=== PATIENT | female | born 1995 | race Caucasian/White ===

== ENCOUNTER → 2024-02-04 13:35 | Outpatient (REF) | payer OTHER, SELFPAY ==
[2024-02-04 16:32] LABS: HIV Combo Negative (Negative)
[2024-02-04 17:27] LABS: Hepatitis B Surface Antigen Negative (Negative)
[2024-02-04 17:44] LABS: Hepatitis B Surface Antibody Negative; Hepatitis C Antibody Negative (Negative)
== END ==
LOC: OHS 13:35
PROVIDERS: ATTENDING PHYSICIAN Nurse Practitioner Family
DX: Z57.8 Occupational exposure to other risk factors (principal)
CPT/HCPCS: 36415; 86706; 86803; 87340; 87389

== ENCOUNTER → 2024-03-11 06:33 | Outpatient (REF) | payer BC, SELFPAY ==
[2024-03-11 06:58] LABS: % Basophils 0.9 % (0-2); % Eosinophils 2.4 % (0-6); % Immature Granulocytes 0.5 % (0-0.5); % Monocytes 7.5 % (1.7-9.3); % Neutrophils 44.7 % (42.2-75.2); Absolute Basophils 0.1 10^3/uL (0-0.2); Absolute Eosinophils 0.1 10^3/uL (0-0.7); Absolute Lymphocytes 2.6 10^3/uL (1.2-3.4); Absolute Monocytes 0.4 10^3/uL (0.1-0.6); Absolute Neutrophils 2.6 10^3/uL (1.4-6.5); Hematocrit 36.3 % (37.0-47.0); Hemoglobin 12.4 g/dL (12.0-16.0); Mean Corp Hgb Conc. 34.2 g/dL (33.0-37.0); Mean Corpuscular Hgb 31.1 pg (27.0-31.0); Mean Platelet Volume 11.5 fL (7.4-10.4); Nucleated Red Blood Cells % 0 %; Platelet Count 161 10^3/uL (130-400); Red Blood Cell Count 3.99 10^6/uL (4.20-5.40); Red Cell Dist. Width 13.7 % (11.5-14.5); White Blood Cell Count 5.9 10^3/uL (4.8-10.8)
[2024-03-11 07:30] LABS: ALT (SGPT) 17 U/L (0-35); AST (SGOT) 18 U/L (14-36); Albumin 4.2 g/dl (3.5-5.0); Alkaline Phosphatase 49 U/L (38-126); Blood Urea Nitrogen 13 mg/dl (7-17); Calcium 9.5 mg/dl (8.4-10.2); Carbon Dioxide 22 mmol/L (22-30); Chloride 107 mmol/L (98-107); Glucose 95 mg/dl (70-99); HDL Cholesterol 83 mg/dl; LDL Cholesterol, Calculated 86 mg/dl; Potassium 4.4 mmol/L (3.5-5.1); Sodium 137 mmol/L (135-145); Total Bilirubin 0.6 mg/dl (0.2-1.3); Total Cholesterol 188 mg/dl (50-199); Triglyceride 96 mg/dl (10-149); Very Low Density Lipoprotein 19 mg/dl (0-30); eGFR > 60.00
[2024-03-11 07:42] LABS: Beta HCG Quantitative < 2.39 mIU/ml; Vitamin D, 25-OH*** 55.5 ng/mL (30-80)
[2024-03-11 07:55] LABS: TSH 2.31 uIU/ml (0.47-4.68)
[2024-03-11 09:01] LABS: Glycohemoglobin (HgbA1c) 5.3 % (4.0-5.6)
== END ==
LOC: REG 06:33
PROVIDERS: FAMILY PHYSICIAN Nurse Practitioner
DX: R53.83 Other fatigue (principal); Z13.1 Encounter for screening for diabetes mellitus; D64.9 Anemia, unspecified; E66.09 Other obesity due to excess calories
CPT/HCPCS: 36415; 80053; 80061; 82306; 83036; 84443; 84702; 85025

== ENCOUNTER → 2024-07-05 09:31 | Outpatient (REF) | payer BC, SELFPAY ==
[2024-07-13 20:27] LABS: HPV, High Risk Not Detected; HPV, High Risk Source Cervical
== END ==
LOC: CPAP 09:31
PROVIDERS: ATTENDING PHYSICIAN Nurse Practitioner Family
DX: Z01.419 Encounter for gynecological examination (general) (routine) without abnormal findings (principal); Z11.51 Encounter for screening for human papillomavirus (HPV); Z11.52 Encounter for screening for COVID-19; Z20.2 Contact with and (suspected) exposure to infections with a predominantly sexual mode of transmission
CPT/HCPCS: 87491; 87591; 87624; G0123

== ENCOUNTER → 2024-10-22 11:13 | Outpatient (REF) | payer BC, SELFPAY ==
[2024-10-22 16:23] LABS: ALT (SGPT) 23 U/L (0-35); AST (SGOT) 21 U/L (14-36); Albumin 4.2 g/dl (3.5-5.0); Alkaline Phosphatase 58 U/L (38-126); Blood Urea Nitrogen 13 mg/dl (7-17); Calcium 9.1 mg/dl (8.4-10.2); Carbon Dioxide 26 mmol/L (22-30); Chloride 104 mmol/L (98-107); Glucose 85 mg/dl (70-99); HDL Cholesterol 78 mg/dl; LDL Cholesterol, Calculated 119 mg/dl; Potassium 4.5 mmol/L (3.5-5.1); Sodium 139 mmol/L (135-145); Total Bilirubin 0.7 mg/dl (0.2-1.3); Total Cholesterol 205 mg/dl (50-199); Total Protein 6.7 g/dl (6.3-8.2); Triglyceride 43 mg/dl (10-149); Very Low Density Lipoprotein 8 mg/dl (0-30); eGFR > 60.00
[2024-10-22 16:35] LABS: % Eosinophils 2.3 % (0-6); % Immature Granulocytes 0.4 % (0-0.5); % Lymphocytes 40.6 % (20.5-51.1); % Monocytes 8.2 % (1.7-9.3); % Neutrophils 47.5 % (42.2-75.2); Absolute Basophils 0.1 10^3/uL (0-0.2); Absolute Eosinophils 0.1 10^3/uL (0-0.7); Absolute Monocytes 0.4 10^3/uL (0.1-0.6); Absolute Neutrophils 2.3 10^3/uL (1.4-6.5); Hematocrit 38.1 % (37.0-47.0); Hemoglobin 12.3 g/dL (12.0-16.0); Mean Corp Hgb Conc. 32.3 g/dL (33.0-37.0); Mean Corpuscular Hgb 30.1 pg (27.0-31.0); Mean Corpuscular Volume 93.2 fL (81.0-99.0); Mean Platelet Volume 12.5 fL (7.4-10.4); Nucleated Red Blood Cells % 0 %; Platelet Count 177 10^3/uL (130-400); Red Blood Cell Count 4.09 10^6/uL (4.20-5.40); Red Cell Dist. Width 14.1 % (11.5-14.5); White Blood Cell Count 4.9 10^3/uL (4.8-10.8)
[2024-10-22 16:38] LABS: Free T4 1.15 ng/dl (0.78-2.19)
[2024-10-22 16:52] LABS: TSH 1.11 uIU/ml (0.47-4.68)
[2024-10-22 17:11] LABS: Vitamin B12 872 pg/ml (239-931)
[2024-10-22 18:01] LABS: Hepatitis B Surface Antibody Positive
[2024-10-23 08:57] LABS: Glycohemoglobin (HgbA1c) 5.2 % (4.0-5.6)
== END ==
LOC: HWLAB 11:13
PROVIDERS: ATTENDING PHYSICIAN Nurse Practitioner; FAMILY PHYSICIAN Nurse Practitioner Family; REFERRING PHYSICIAN Nurse Practitioner
DX: Z23 Encounter for immunization (principal); R20.2 Paresthesia of skin; E66.01 Morbid (severe) obesity due to excess calories; D64.9 Anemia, unspecified; Z13.1 Encounter for screening for diabetes mellitus; Z13.220 Encounter for screening for lipoid disorders
CPT/HCPCS: 36415; 80053; 80061; 82607; 83036; 84439; 84443; 85025; 86706

== ENCOUNTER 2025-01-24 20:16 | Emergency (ER) | payer BC, SELFPAY ==
[2025-01-24 20:18] VITALS: BP 143/81
--- NOTE | 2025-01-24 21:12 | ED.GENMED ---
History of Present Illness
<Layla Smith PA-C - Last Filed: 01/25/25 01:06>
General
Chief Complaint: Skin Surface Trauma
Source: patient
Exam Limitations: none
Time Seen by Provider: 01/24/25 20:32
Nursing documentation reviewed up to this point in time: agreed with
History of Present Illness
History of Present Illness:
Patient is a 29-year-old female presenting to the emergency department for laceration of left third digit. Patient states she accidentally cut her fingers when slicing an onion in the kitchen. She reports very minor laceration to left thumb and
left fourth digit which has stopped bleeding along with a laceration to her left third digit. Patient applied direct pressure with a Band-Aid to her left third digit although bleeding has persisted. Patient denies any numbness/tingling in affected
digit. Patient denies any limited range of motion in digit.
Patient is up-to-date with tetanus vaccine.
Past History
<Layla Smith PA-C - Last Filed: 01/25/25 01:06>
Past History
ED Past Medical History: Other (Pilonidal cyst)
ED Past Surgical History: Tonsilectomy and Other (culposcopy)
Social History
Tobacco: Non-smoker
Alcohol: None
Drug: None
Living: with family
Employment: Employed
Review of Systems
<Layla Smith PA-C - Last Filed: 01/25/25 01:06>
Review of Systems
Allergies reviewed?: Yes
All Other Systems: ROS reviewed and negative except as documented in HPI and ROS
Phy Exam
<Layla Smith PA-C - Last Filed: 01/25/25 01:06>
Physical Exam
Physical Exam:
Vitals: Mildly hypertensive, otherwise vital signs are stable. Afebrile
General: Patient is well appearing, no acute distress
Skin: Less than 1 cm superficial laceration of distal left third digit at lateral aspect of nailbed with no nail involvement actively bleeding. Very superficial laceration of left first digit and left fourth digit without active bleeding
Head: Normocephalic, atraumatic
Throat: Protecting airway
Neck: Normal ROM, no cervical spine tenderness
Cardiac: Regular rate
Pulm: No apparent respiratory distress
Abdomen: Nondistended
Extremities: Lacerations to left 1st, 3rd, and 4th digit as described above. Excellent strength against resistance in MCP, PIP, and DIP joints. Capillary refill WNL in affected digits of left hand. 2+ palpable left radial pulse.
Neuro: Grossly intact
Psychiatric: Normal affect.
Course
<Layla Smith PA-C - Last Filed: 01/25/25 01:06>
Vital Signs
Initial and Last Documented VS:
Initial Vital Signs
Temp Pulse Resp BP Pulse Ox
98.9 F 82 18 143/81 98
01/24/25 20:18 01/24/25 20:18 01/24/25 20:18 01/24/25 20:18 01/24/25 20:18
Last Documented Vital Signs
Temp Pulse Resp BP Pulse Ox
98.9 F 82 18 143/81 98
01/24/25 20:18 01/24/25 20:18 01/24/25 20:18 01/24/25 20:18 01/24/25 20:18
<Chepe Bonilla MD - Last Filed: 01/24/25 21:27>
Vital Signs
Initial and Last Documented VS:
Initial Vital Signs
Temp Pulse Resp BP Pulse Ox
98.9 F 82 18 143/81 98
01/24/25 20:18 01/24/25 20:18 01/24/25 20:18 01/24/25 20:18 01/24/25 20:18
Last Documented Vital Signs
Temp Pulse Resp BP Pulse Ox
98.9 F 82 18 143/81 98
01/24/25 20:18 01/24/25 20:18 01/24/25 20:18 01/24/25 20:18 01/24/25 20:18
Procedures
<Layla Smith PA-C - Last Filed: 01/25/25 01:06>
Laceration Closure
Left Third Finger(s):
Status of Wound: clean
Size of Wound in cm: 0.5
Description of Wound Edges: sharp
Preparation: cleaned with saline
Revision/Debridement: routine- no revision
Wound exploration: explored to base- no FB
Type of Closure: Dermabond-skin glue
<Layla Smith PA-C - Last Filed: 01/25/25 01:06>
MDM/Problems Addressed
Differential Diagnosis Includes:
Not limited to: Laceration, abrasion, etc.
MDM/Problems Addressed:
29-year-old female presenting with superficial laceration of left third digit, unable to stop bleeding at home. This occurred a few hours prior to arrival while cutting an onion in the kitchen. Patient up-to-date on tetanus vaccine. Vitals and
exam as above. As noted�there is a superficial laceration to the distal left third digit at lateral aspect of nailbed. There is no involvement of nail. Affected digits of left hand neurovascularly intact. While laceration appears superficial�it
is actively bleeding and will require primary closure. Verbal consent obtained by patient. Wound was thoroughly irrigated with normal saline. A finger tourniquet was placed to stop bleeding. Wound was then closed with Dermabond skin glue with
wound edges well-approximated and finger tourniquet was removed. Patient tolerated procedure well.
Update: Did briefly observe patient in ED following closure. There is no evidence of recurrent bleeding. Left third digit remains neurovascularly intact. At this point�feel patient stable for discharge home with wound care instructions and
return precautions. Patient comfortable with plan. Patient seen with attending physician.
Chronic conditions affecting care:
N/A
Acute Exacerbation and/or Progression of Chronic Illness:
N/A
<Layla Smith PA-C - Last Filed: 01/25/25 01:06>
*Pulse Oximetry
Patient hypoxic: no
*EKG
Interpreted by ED Provider?: NA
*Hair Colorist Interpretation
Rate: Hair Colorist- N/A
*Critical Care Note
Total Time (30-74mins, 75-104mins- exclusive of procedures): Not Applicable
ED Attending Note
<Layla Smith PA-C - Last Filed: 01/25/25 01:06>
-
Portions of this chart may have been created with voice recognition software.� Occasional wrong word or��sound alike� substitutions may have occurred due to the inherent limitations of voice recognition software.
<Chepe Bonilla MD - Last Filed: 01/24/25 21:27>
ED Attending Note
Patient seen and examined by attending physician: Yes
I performed the substantive portion of visit, reviewed & personally made and approve the management plan that is documented in note by myself or SUNSHINE.: Yes
ED Attending Note:
Patient cut her middle finger with a knife. Superficial cut to the thumb and fourth finger. Cannot stop the bleeding.
Less than 1 cm laceration lateral third digit at the nail. No nail involvement.
Appropriate for Dermabond.
Discharge Plan
Departure
Patient Disposition: Home (Routine Discharge)
Date of Disposition: 01/24/25
Time of Disposition: 21:58
Patient with high blood pressure during this ER visit?: Yes
Condition: Good
Covid-19: Not Applicable
Discharge Problem:
Laceration of finger of left hand
Instructions: Laceration Repair With Glue (DC), Wound Care (DC)
Prescriptions:
No Action
norethindrone ac-eth estradiol [Loestrin 1/20 (21)] 1-20 mg-mcg Tablet
1 tab PO DAILY
fluoxetine [Prozac] 20 mg Capsule
20 mg PO DAILY
spironolactone 50 mg Tablet
50 mg PO DAILY
Mounjaro 2.5 mg/0.5 mL Pen Injector
2.5 mg SC QWEEK
Patient Comments:
last dose today, no refills .
acetaminophen [acetaminophen] 325 mg tablet
650 mg PO Q4HPRN PRN (Reason: mild pain) Qty: 1 0RF
ibuprofen 200 mg tablet
400 - 600 mg PO Q6HPRN PRN (Reason: moderate pain) Qty: 1 0RF
oxycodone 5 mg tablet
5 mg PO Q4HPRN PRN (Reason: breakthrough/severe pain) Qty: 10 0RF
Referrals:
Lauren Thomas CRNP [Family Provider] - As needed
Activity Restrictions/Additional Instructions:
Return to the emergency department with any repeat bleeding from laceration that will not stop at home, or any signs of infection bleeding fever, significant redness, swelling, purulent drainage from wound, red streaking away from wound, or any
other concerns
- Your wound was closed with a small amount of glue while in the emergency department. This will dissolve over the next week.
- Keep covered until wound has healed completely. Avoid applying any antibiotic ointment/Vaseline as this may speed up dissolving of fluid.
- Follow-up with primary care for further evaluation/management as needed
Monitor your symptoms closely and return to the emergency department with any acute worsening/new symptoms or any other concerns
Interventions
Interventions:
*Risk Screen - Suicide Last Done: 01/24/25 20:18
*General Assessment Last Done: 01/24/25 20:18
*Neglect/Abuse Screening Last Done: 01/24/25 20:18
*ED- Fall Risk Assessment Last Done: 01/24/25 20:18
*ED COVID-19 Vaccine History Last Done: 01/24/25 20:18
*Nursing Disposition Last Done: 01/24/25 22:21
ED-Skin Assessment Last Done: 01/24/25 21:15
Discharge Date and Time
Discharge Date/Time: 01/24/25 22:21
Print Language: MALTESE
== END 2025-01-24 22:21 | disposition home or self-care (01) ==
LOC: EMR 20:16
PROVIDERS: EMERGENCY PHYSICIAN Emergency Medicine; FAMILY PHYSICIAN Nurse Practitioner Family
DX: S61.012A Laceration without foreign body of left thumb without damage to nail, initial encounter (principal); S61.213A Laceration without foreign body of left middle finger without damage to nail, initial encounter; S61.215A Laceration without foreign body of left ring finger without damage to nail, initial encounter; W26.0XXA Contact with knife, initial encounter
CPT/HCPCS: 99282; 12001

== ENCOUNTER → 2025-06-08 07:03 | Outpatient (REF) | payer BC, SELFPAY ==
[2025-06-08 07:42] LABS: Hematocrit 36.9 % (37.0-47.0); Hemoglobin 12.0 g/dL (12.0-16.0); Mean Corp Hgb Conc. 32.5 g/dL (33.0-37.0); Mean Corpuscular Volume 92.7 fL (81.0-99.0); Nucleated Red Blood Cells % 0 %; Platelet Count 157 10^3/uL (130-400); Red Cell Dist. Width 13.6 % (11.5-14.5)
[2025-06-08 08:27] LABS: ALT (SGPT) 16 U/L (0-35); AST (SGOT) 19 U/L (14-36); Albumin 4.7 g/dl (3.5-5.0); Alkaline Phosphatase 44 U/L (38-126); Blood Urea Nitrogen 21 mg/dl (7-17); Calcium 9.4 mg/dl (8.4-10.2); Carbon Dioxide 23 mmol/L (22-30); Chloride 110 mmol/L (98-107); Glucose 82 mg/dl (70-99); HDL Cholesterol 83 mg/dl; LDL Cholesterol, Calculated 104 mg/dl; Potassium 5.0 mmol/L (3.5-5.1); Sodium 139 mmol/L (135-145); Total Protein 7.3 g/dl (6.3-8.2); Very Low Density Lipoprotein 14 mg/dl (0-30); eGFR > 60.00
[2025-06-08 09:11] LABS: Glycohemoglobin (HgbA1c) 4.9 % (4.0-5.6)
== END ==
LOC: REG 07:03
PROVIDERS: ATTENDING PHYSICIAN Internal Medicine; FAMILY PHYSICIAN Nurse Practitioner Family
DX: E66.01 Morbid (severe) obesity due to excess calories (principal); R53.83 Other fatigue; Z79.899 Other long term (current) drug therapy; K21.9 Gastro-esophageal reflux disease without esophagitis; Z13.220 Encounter for screening for lipoid disorders; Z13.1 Encounter for screening for diabetes mellitus
CPT/HCPCS: 36415; 80053; 80061; 83036; 84443; 85025

== ENCOUNTER → 2025-08-18 10:56 | Outpatient (REF) | payer OTHER, SELFPAY ==
[2025-08-18 11:54] LABS: Hematocrit 34.5 % (37.0-47.0); Hemoglobin 11.2 g/dL (12.0-16.0); Mean Corp Hgb Conc. 32.5 g/dL (33.0-37.0); Mean Corpuscular Volume 93.8 fL (81.0-99.0); Platelet Count 151 10^3/uL (130-400); Red Cell Dist. Width 14.2 % (11.5-14.5)
[2025-08-18 12:40] LABS: HCG, Serum Qualitative Screen Negative
[2025-08-18 13:15] LABS: ALT (SGPT) 17 U/L (0-35); AST (SGOT) 16 U/L (14-36); Albumin 4.4 g/dl (3.5-5.0); Alkaline Phosphatase 45 U/L (38-126); Blood Urea Nitrogen 12 mg/dl (7-17); Calcium 9.3 mg/dl (8.4-10.2); Carbon Dioxide 25 mmol/L (22-30); Chloride 105 mmol/L (98-107); Glucose 97 mg/dl (70-99); Potassium 4.1 mmol/L (3.5-5.1); Sodium 136 mmol/L (135-145); Total Protein 7.0 g/dl (6.3-8.2); eGFR > 60.00
[2025-08-18 14:21] LABS: Hepatitis B Surface Antigen Negative (Negative)
[2025-08-18 14:38] LABS: Hepatitis C Antibody Negative (Negative)
== END ==
LOC: OHS 10:56
PROVIDERS: ATTENDING PHYSICIAN Nurse Practitioner Family
DX: Z57.8 Occupational exposure to other risk factors (principal)
CPT/HCPCS: 80053; 82248; 84100; 84703; 85027; 86706; 86803; 87340; 87389